=== PATIENT | male | born 1945 | race Caucasian/White ===

== ENCOUNTER 2018-07-08 11:20 | Outpatient (CLI) | payer MEDICARE, SELFPAY ==
--- NOTE | 2018-07-08 11:13 | DI.RAD_ITS ---
SYMPTOMS/DIAGNOSIS: 1 YEAR FOLLOW UP LEFT HIP AND PELVIS: Comparison 07/16/17. There are again seen post surgical changes of a left total hip replacement. No evidence of hardware failure is seen. The bones are intact. The soft tissues are unremarkable. IMPRESSION: Stable left THR.
== END 2018-07-08 11:40 ==
PROVIDERS: PCP Family Medicine; Visit Provider Student in an Organized Health Care Education/Training Program
DX: Z96.642 Presence of left artificial hip joint (principal); Z47.1 Aftercare following joint replacement surgery
CPT/HCPCS: 99212; 99213; 73502

== ENCOUNTER 2019-11-02 01:43 | Outpatient (CLI) | payer MEDICARE, SELFPAY ==
--- NOTE | 2019-11-02 06:45 | DI.US_ITS ---
EXAM: US AAA SCREENING CLINICAL HISTORY: SCREENING FOR AAA,Z13.6 TECHNIQUE: Ultrasound performed using standard protocol. COMPARISON: No exams were available for comparison FINDINGS: Ultrasound of the abdominal aorta was performed. Maximal aortic diameter is about 28 millimeters pro ximally, this is at the upper limits of normal. Mid abdominal aorta measures about 27 millimeters in diameter, and distal aorta measures about 20 millimeters in diameter. Common iliac arteries measure about 13 millimeters in diameter bilaterally. IMPRESSION: No evidence of abdominal aortic aneurysm, abdominal aorta is at the upper limits of normal in size fo r a male patient. DATA REPOSITORY:
== END 2019-11-02 02:03 ==
PROVIDERS: PCP Family Medicine; Visit Provider Family Medicine
DX: Z13.6 Encounter for screening for cardiovascular disorders (principal)
CPT/HCPCS: 36415; 76706; 80048

== ENCOUNTER 2019-11-02 04:32 | Outpatient (CLI) | payer MEDICARE, SELFPAY ==
[2019-11-02 08:29] LABS: Anion Gap 7.2 mmol/L (3-11); BUN 22 mg/dL (7-18); CO2 28.8 mmol/L (21.0-32.0); Calcium 9.3 mg/dL (8.5-10.1); Chloride 105 mmol/L (98-107); Estimated GFR 59.18 (mL/min/1.73m2); Glucose 92 mg/dL (74-106); Potassium 4.3 mmol/L (3.5-5.1); Sodium 141 mmol/L (136-145)
== END 2019-11-02 04:52 ==
PROVIDERS: PCP Family Medicine; Visit Provider Family Medicine
DX: I10 Essential (primary) hypertension (principal); Z13.1 Encounter for screening for diabetes mellitus
CPT/HCPCS: 36415; 80048

== ENCOUNTER 2021-11-14 16:02 | Emergency (ER) | payer OTHER, SELFPAY ==
[2021-11-14 16:05] VITALS: BP 155/80; PULSE 78; RESP 17; TEMP 36.8; O2SAT 97
--- NOTE | 2021-11-14 16:15 | DI.RAD_ITS ---
Exam(s) XR THUMB LT EXAM: XR THUMB LT EXAM DATE/TIME: CLINICAL HISTORY: trauma-laceration with saw. TECHNIQUE: 2D digital imaging was performed of the left finger. Three views were obtained. PA/AP, oblique, and lateral views were obtained. COMPARISON: None. FINDINGS: BONES: No acute fracture is present. No bony destructive lesion is seen. JOINTS: No dislocation is present. Mild degenerative changes are seen at the 1st CMC joint. SOFT TISSUE: There has been a soft tissue amputation of the tip of the thumb. No radiopaque foreign body is identified. IMPRESSION: 1. No evidence of acute fracture or dislocation. 2. Soft tissue amputation of the tip of the thumb. No radiopaque foreign body. DATA REPOSITORY: RADIATION DOSE DELIVERED:
--- NOTE | 2021-11-14 16:45 | DI.VRAD_ITS ---
PROCEDURE INFORMATION: Exam: XR Left Finger(s) Exam date and time: 11/14/2021 4:28 PM Age: 76 years old Clinical indication: Other: Trauma- laceration with saw TECHNIQUE: Imaging protocol: Radiologic exam of the Left fingers. Views: Minimum 2 views. COMPARISON: No relevant prior studies available. FINDINGS: Bones/joints: No acute fracture. No dislocation. Bony remodeling at the base of the 1st metacarpal bone is suggestive of prior injury. Soft tissues: Soft tissue laceration noted at the tip of the 1st digit. IMPRESSION: 1. No acute fracture. 2. Laceration noted at the tip of the 1st digit. Dictated and Authenticated by: Gertrude Melendez MD. Ordering:TIGIST Baldwin MD
--- NOTE | 2021-11-14 17:20 | ED.GENADUL_ITS ---
Discharge Plan Disposition Patient Disposition: HOME Condition: Stable Discharge Details Clinical Impression: Avulsion of finger tip Primary Care Provider: Unknown,Unknown ED Provider: Denny Ford Home Meds and New Rx's Prescriptions: New cephalexin 500 mg tablet 500 mg PO QID 3 Days Qty: 12 0RF No Action fish oil-dha-epa 1 EACH capsule 1 ea PO DAILY lutein 20 MG capsule 20 mg PO DAILY acetaminophen [Arthritis Pain Relief (acetam)] 650 MG tablet extended release 650 mg PO .5TIMES A DAY echinacea 380 MG capsule 380 mg PO PRN PRN acetaminophen [Mapap Extra Strength] 500 MG tablet 1,000 mg PO Q8H PRN PRNQty: 100 1RF Discharge Instructions Instructions: Skin Avulsion (ED) Additional Instructions: Watch for any signs of infection and return immediately to the emergency department if these occur. Otherwise keep dressing in place until you follow-up with orthopedist for reassessment of your wound. We have recommended that you see them in the next 48 hours for wound check and dressing change. If you are unable to arrange follow-up appoint with them please return to the emergency department on Friday for wound check Referrals: [facility] [Provider Group] - 2 days (For wound check and dressing change) Discharge Data Discharge Date/Time-TO BE ENTERED AT DEPARTURE: 11/14/21 17:32 Medical Decision Making Patient presenting the emergency department for chief complaint of left laceration due to table saw. Patient reports skin avulsion and has the piece of skin but unsure if it can be reattached. Patient denies any other injury or trauma. Physical exam shows a left fingertip and finger pad avulsion. No obvious bone involvement will perform radiological imaging for evaluation of bony involvement given mechanism of injury. Reviewed imaging shows intact bone. 3 mL of 1% lidocaine was utilized and the wound was also cleaned with some local injection. Wound was thoroughly cleansed and inspected to base with finger tourniquet in place. In a bloodless field. No visible bone but there is minimal tissue in between the bone and exposed area. Surgicel was placed on the wound with petroleum dressing over it. Tube gauze was then used to hold this in place. This achieved appropriate hemostasis. Patient was activated on tetanus and documents show was given 2020. Given mechanism will place patient on Keflex for 3 days and recommend Ortho follow-up given close proximity to bone for 48-hour wound check and dressing change. Patient encouraged to return the emergency department for any new or worsening symptoms. After discussion of diagnosis and plan of care patient has no further needs, questions, or concerns and states clear understanding to return to the emergency department for any worsening symptoms. This documentation was generated using [employer] dictation system, please disregard any oddities of phrase or misspellings. Imaging Data Radiologic Study: Attestation: I personally reviewed and interpreted this imaging study as follows: Imaging: X-Ray My impression: Soft tissue loss but no bony fracture or fragment. No radiopaque foreign body is noted. Radiologist's impression: FINDINGS: Bones/joints: No acute fracture. No dislocation. Bony remodeling at the base of the 1st metacarpal bone is suggestive of prior injury. Soft tissues: Soft tissue laceration noted at the tip of the 1st digit. IMPRESSION: 1. No acute fracture. 2. Laceration noted at the tip of the 1st digit. HPI General Mode of arrival: ambulatory . Date/Time Provider Initiated Documentation: 11/14/21 16:09 . Limitations to Documentation: no limitations . Information obtained by: patient, family and RN notes reviewed . History of Present Illness 76 year old M presents to the emergency department with the chief complaint of Left thumb laceration , described as moderate, with intensity rated at 6. Quality is described as sharp, and is localized to the left and upper extremity. Patient reports no radiation. Patient started experiencing this minute(s) (45) and it has been constant. No relieving factors improve symptom(s), No exacerbating factors reported . Patient notes no other symptoms.. Patient did receive the following treatments prior to arrival, none Related Data Home Medications Medication Instructions Recorded Confirmed fish oil-dha-epa 1,200 mg-144 1 ea PO DAILY 04/10/17 11/16/21 mg-216 mg capsule lutein 20 mg capsule 20 mg PO DAILY 05/01/17 11/16/21 acetaminophen 650 mg 650 mg PO .5TIMES A DAY 06/20/17 11/16/21 tablet,extended release (Arthritis Pain Relief (acetaminophen) ER) echinacea 380 mg capsule 380 mg PO PRN PRN 06/20/17 11/16/21 acetaminophen 500 mg tablet (Mapap 1,000 mg PO Q8H PRN PRN #100 tabs 07/02/17 11/16/21 Extra Strength) cephalexin 500 mg tablet 500 mg PO QID 3 days #12 tabs 11/14/21 11/16/21 Previous Rx's Medication Instructions Recorded acetaminophen 500 mg tablet (Mapap 1,000 mg PO Q8H PRN PRN #100 tabs 07/02/17 Extra Strength) cephalexin 500 mg tablet 500 mg PO QID 3 days #12 tabs 11/14/21 Allergies Allergy/AdvReac Type Severity Reaction Status Date / Time wool AdvReac Uncoded 11/16/21 09:07 General Stated Complaint: Laceration WLOF: 3 Review of Systems Narrative: 8 systems reviewed and unremarkable except what is marked below. Cardiovascular Cardiovascular: Denies syncope Integumentary/Breasts Skin/Breast: Reports as per HPI Neurologic Neurologic: Denies syncope and Denies sensory deficit PFSH All Active Problems (Updated 11/16/21 @ 09:28 by FIONA Garcia) Avulsion of finger tip (Acute 11/14/21) L thumb Status post total hip replacement, left (Acute) DOS: 07/01/17 Dr. Wolfe Iron deficiency anemia, unspecified (Acute 03/18/17) Primary osteoarthritis of left hip (Acute 08/13/17) Vitamin D deficiency (Acute 03/18/17) Medical History (Updated 11/16/21 @ 09:28 by FIONA Garcia) Shingles (10/29/15) Family History (Updated 03/31/17 @ 14:29 by Miriam Marie RN) Father No problems noted. Other Aortic aneurysm Social History (Updated 10/18/19 @ 08:18 by Dennise Guevara LPN) Smoking/Tobacco Use Status: Former Tobacco Use Smoking risk assessment performed?: Yes Alcohol Intake: current Alcohol Intake frequency: 0-2 drinks per day Alcohol type: beer Drug use: Never Substance use type: does not use Household members: spouse Housing: house Number of Children: 3 Communication Needs: None current occupation: retired What is your relationship status?: Panel score (0-1 are the most socially isolated patients): 1 What type of physical activity do you participate in: regular exercise Seatbelt use: always Drive intox or ride w/intox yard truck driver: No Working smoke detector in home: Yes Fire extinguisher in home: Yes Carbon monox detector in home: Yes Do you feel safe at home: Yes Do you feel safe in your relationship?: Yes Exam Const General: cooperative and no acute distress Orientation: alert, awake and oriented x3 Limitations: mental status not altered Resp Effort & Inspection: normal respiratory effort and able to speak in complete sentences Cardio Rate: regular rate Rhythm: regular rhythm Pulses: radial pulses present Neuro General: patient alert, patient awake, patient oriented x3, gait normal, tone normal, moves all extremities, normal light touch, pain and propioception and no focal motor deficits Motor: no movement abnormalities noted Sensory Exam: no sensory deficits noted Extrem General: normal exam except as noted Left upper extremity: hand Details: laceration (2cm) thumb palmar aspect distal Details: irregular, avulsion, actively bleeding, involving subcutaneous tissue, with motor nerve function intact and with sensation intact; not contaminated Course Vital Signs Vital signs: Vital Signs Temperature 36.8 C 11/14/21 16:05 Pulse 78 11/14/21 16:05 Respiratory Rate 17 11/14/21 16:05 Blood Pressure 155/80 H 11/14/21 16:05 Pulse Oximetry 97 11/14/21 16:05 Temperature 36.8 C 11/14/21 16:05 Temperature Source Temporal Artery Scan 11/14/21 16:05 Pulse 78 11/14/21 16:05 Respiratory Rate 17 11/14/21 16:05 Respiratory Effort Non-Labored 11/14/21 16:08 Blood Pressure 155/80 H 11/14/21 16:05 Blood Pressure Position Sitting 11/14/21 16:05 Pulse Oximetry 97 11/14/21 16:05 Oxygen Delivery Method Room Air 11/14/21 16:05 Oxygen Flow Rate 0 11/14/21 16:05 Pain Level 6 11/14/21 16:08 PAWSS Have you Been Recently Intoxicated or Drunk Within the Last 30 days?: No Have you Ever Experienced Previous Episodes of Alcohol Withdrawal?: No Have you ever Experienced Withdrawal Seizures?: No Have you ever Experienced Delirium Tremens(DT)s?: No Have you ever undergone Alcohol Rehabilitation Treatment (i.e, inpt ot outpatient treatment programs)?: No Have you ever Experienced Blackouts?: No Have you ever Combined Alcohol with other Downers within the last 90 days?: No Have you ever Combined Alcohol with any other Substance of Abuse during the last 90 days?: No Result: 0
[2021-11-14] MEDS: Cellulose,Oxidized 2X3 PKT 1 EACH MC (17:23)
== END 2021-11-14 17:32 | disposition home or self-care (01) ==
PROVIDERS: Emergency Provider Nurse Practitioner Family
DX: S61.012A Laceration without foreign body of left thumb without damage to nail, initial encounter (principal); Z87.891 Personal history of nicotine dependence; W27.0XXA Contact with workbench tool, initial encounter
CPT/HCPCS: 99283; 73140; 99284

== ENCOUNTER → 2021-11-16 08:57 | Outpatient (BNVA) | payer OTHER, SELFPAY | PROVIDERS: PCP Physician Assistant; Visit Provider Student in an Organized Health Care Education/Training Program | DX: S61.208A Unspecified open wound of other finger without damage to nail, initial encounter (principal); X58.XXXA Exposure to other specified factors, initial encounter | CPT/HCPCS: 99214 ==

== ENCOUNTER 2022-02-26 16:38 | Outpatient (REF) | payer OTHER, SELFPAY ==
[2022-02-26 17:11] LABS: Anion Gap 9.1 mmol/L (3-11); BUN 30 mg/dL (7-18); CO2 26.9 mmol/L (21.0-32.0); CREATININE 1.3 mg/dL (0.70-1.30); Calcium 9.5 mg/dL (8.5-10.1); Chloride 107 mmol/L (98-107); Estimated GFR 56.93 (mL/min/1.73m2); Glucose 92 mg/dL (74-106); Potassium 4.3 mmol/L (3.5-5.1); Sodium 143 mmol/L (136-145)
== END 2022-02-26 16:39 | disposition home or self-care (01) ==
LOC: NCHCN 16:38
PROVIDERS: PCP Physician Assistant; Visit Provider Physician Assistant
DX: I10 Essential (primary) hypertension (principal)
CPT/HCPCS: 80048

== ENCOUNTER 2022-12-03 10:29 | Outpatient (REF) | payer OTHER, SELFPAY ==
[2022-12-03 16:23] LABS: Anion Gap 10.3 mmol/L (3-11); BUN 27 mg/dL (7-18); CO2 25.7 mmol/L (21.0-32.0); CREATININE 1.2 mg/dL (0.70-1.30); Calcium 9.4 mg/dL (8.5-10.1); Chloride 109 mmol/L (98-107); Estimated GFR 62.29 (mL/min/1.73m2); Glucose 101 mg/dL (74-106); Potassium 4.2 mmol/L (3.5-5.1); Sodium 145 mmol/L (136-145)
== END 2022-12-03 10:30 | disposition home or self-care (01) ==
LOC: NCHCN 10:29
PROVIDERS: PCP Physician Assistant; Visit Provider Physician Assistant
DX: I10 Essential (primary) hypertension (principal)
CPT/HCPCS: 80048

== ENCOUNTER 2023-12-10 09:45 | Outpatient (REF) | payer OTHER, SELFPAY ==
[2023-12-10 15:49] LABS: Anion Gap 7.3 mmol/L (3-11); BUN 19 mg/dL (7-18); CO2 27.7 mmol/L (21.0-32.0); CREATININE 1.1 mg/dL (0.70-1.30); Calcium 9.8 mg/dL (8.5-10.1); Chloride 106 mmol/L (98-107); Estimated GFR 68.71 (mL/min/1.73m2); Glucose 92 mg/dL (74-106); Potassium 4.7 mmol/L (3.5-5.1); Sodium 141 mmol/L (136-145)
== END 2023-12-10 09:46 | disposition home or self-care (01) ==
LOC: NCHCN 09:45
PROVIDERS: PCP Physician Assistant; Visit Provider Physician Assistant
DX: I10 Essential (primary) hypertension (principal)
CPT/HCPCS: 80048